=== PATIENT | female | born 1985 | race Two or more races ===

== ENCOUNTER 2017-08-11 13:54 | Emergency (ER) | payer OTHER ==
[~2017-08-11] VITALS: Ht 157.5 cm; Wt 96.6 kg
[~2017-08-11 13:54] MED LIST: CEFTIN500 MG PO; DURICEF PO; KETO10TA2 PO; LEVAQUIN750 MG PO; MOTRIN800 MG PO; PEPCID40 MG PO; PHENERGAN25 MG PO; PYRIDIUM200 MG PO; SEPTRA DS TABLE1 TAB PO
== END 2017-08-11 20:42 | disposition home or self-care (01) ==
LOC: ER 13:54
DX: S30.0XXA Contusion of lower back and pelvis, initial encounter (principal); V43.52XA Car driver injured in collision with other type car in traffic accident, initial encounter; Y93.89 Activity, other specified; Y92.488 Other paved roadways as the place of occurrence of the external cause; Y99.8 Other external cause status

== ENCOUNTER 2018-02-06 15:44 | Emergency (ER) | payer OTHER ==
[~2018-02-06] VITALS: Ht 157.5 cm; Wt 97.5 kg
== END 2018-02-06 18:17 | disposition home or self-care (01) ==
LOC: ER 15:44
DX: J06.9 Acute upper respiratory infection, unspecified (principal)

== ENCOUNTER 2018-02-17 21:05 | Emergency (ER) | payer OTHER ==
[~2018-02-17] VITALS: Ht 157.5 cm; Wt 97.5 kg
== END 2018-02-17 22:25 | disposition home or self-care (01) ==
LOC: ER 21:05
DX: T78.49XA Other allergy, initial encounter (principal); L29.8 Other pruritus

== ENCOUNTER 2018-03-02 20:19 | Emergency (ER) | payer OTHER ==
[~2018-03-02] VITALS: Ht 157.5 cm; Wt 100.7 kg
== END 2018-03-02 22:43 | disposition home or self-care (01) ==
LOC: ER 20:19
DX: B34.9 Viral infection, unspecified (principal); J11.1 Influenza due to unidentified influenza virus with other respiratory manifestations

== ENCOUNTER 2019-09-18 18:24 | Emergency (ER) | payer OTHER ==
[~2019-09-18] VITALS: Ht 160 cm; Wt 99.8 kg
== END 2019-09-18 21:51 | disposition home or self-care (01) ==
LOC: ER 18:24
DX: N93.8 Other specified abnormal uterine and vaginal bleeding (principal)

== ENCOUNTER 2019-10-08 12:47 | Emergency (ER) | payer OTHER ==
[~2019-10-08] VITALS: Ht 157.5 cm; Wt 99.8 kg
== END 2019-10-08 17:15 | disposition home or self-care (01) ==
LOC: ER 12:47
DX: N39.0 Urinary tract infection, site not specified (principal); B96.29 Other Escherichia coli [E. coli] as the cause of diseases classified elsewhere

== ENCOUNTER 2021-01-28 13:30 | Emergency (ER) | payer OTHER ==
[~2021-01-28] VITALS: Ht 157.5 cm; Wt 97.5 kg
== END 2021-01-28 16:20 | disposition home or self-care (01) ==
LOC: ER 13:30
DX: N39.0 Urinary tract infection, site not specified (principal); R10.2 Pelvic and perineal pain

== ENCOUNTER 2022-02-17 19:25 | Emergency (ER) | payer OTHER ==
[~2022-02-17] VITALS: Ht 157.5 cm; Wt 99.8 kg
[2022-02-18] MEDS ORDERED: TRISPEC PSE LI118 ML PO (01:32)
[2022-02-18] MEDS ORDERED: OSEL75CA PO (01:32)
== END 2022-02-18 04:33 ==
LOC: ER 19:25
DX: J10.1 Influenza due to other identified influenza virus with other respiratory manifestations (principal); J06.9 Acute upper respiratory infection, unspecified; Z20.828 Contact with and (suspected) exposure to other viral communicable diseases

== ENCOUNTER 2022-10-12 23:09 | Emergency (ER) | payer OTHER ==
[~2022-10-12] VITALS: Ht 157.5 cm; Wt 99.8 kg
[~2022-10-12 23:09] MED LIST changes: +OSEL75CA PO; +TRISPEC PSE LI118 ML PO
== END 2022-10-13 03:20 | disposition home or self-care (01) ==
LOC: ER 23:09
DX: K29.60 Other gastritis without bleeding (principal); R10.9 Unspecified abdominal pain; K04.7 Periapical abscess without sinus; Z88.0 Allergy status to penicillin; Z88.5 Allergy status to narcotic agent

== ENCOUNTER 2022-12-09 21:59 | Emergency (ER) | payer OTHER ==
[~2022-12-09] VITALS: Ht 157.5 cm; Wt 102.1 kg
== END 2022-12-09 23:14 | disposition home or self-care (01) ==
LOC: ER 21:59
DX: R21 Rash and other nonspecific skin eruption (principal); T63.421A Toxic effect of venom of ants, accidental (unintentional), initial encounter; Z88.0 Allergy status to penicillin; Z88.6 Allergy status to analgesic agent

== ENCOUNTER 2022-12-25 23:16 | Emergency (ER) | payer OTHER ==
[~2022-12-25] VITALS: Ht 157.5 cm; Wt 99.8 kg
== END 2022-12-26 01:10 | disposition home or self-care (01) ==
LOC: ER 23:16
DX: J06.9 Acute upper respiratory infection, unspecified (principal)

== ENCOUNTER 2023-03-16 16:09 | Emergency (ER) | payer OTHER ==
[~2023-03-16] VITALS: Ht 167.6 cm; Wt 99.8 kg
[2023-03-16 17:11] LABS: HEMATOCRIT 39.7 % (36.0-45.00); MEAN CELL VOLUME 84.7 fL (80.00-100.00); MEAN CORPUSCULAR HEMOGLOBIN 27.8 pg (27.00-32.0); MEAN CORPUSCULAR HGB CONC 32.8 g/dl (32.0-36.0); PLATELET COUNT 245 K/uL (150-450); RED BLOOD COUNT 4.69 M/uL (4.00-6.00); RED CELL DISTRIBUTION WIDTH 14.3 % (11.5-14.5)
[2023-03-16 17:41] LABS: CALCIUM 8.8 mg/dL (8.5-10.1); CREATININE SERUM 0.61 mg/dL (0.55-1.02); GFR 110.36; POTASSIUM 4.34 mEq/L (3.5-5.1)
[2023-03-16 21:55] LABS: URINE APPEARANCE Clear; URINE BILIRRUBIN Negative (NEGATIVE); URINE BLOOD Negative; URINE COLOR Yellow; URINE GLUCOSE Negative (NEGATIVE); URINE LEUKOCYTE Negative; URINE NITRATE Negative; URINE PROTEIN Negative (NEGATIVE); URINE UROBILINOGEN 0.2 E.U./dl
[2023-03-16 21:56] LABS: URINE BACTERIA 697.9 uL (0.0-1933); URINE EPITHELIAL CELLS 9.4 uL (0.0-38.8); URINE RBC 4.7 uL (0.0-20.8); URINE WBC 4.4 uL (0.0-23.2)
[2023-03-17] MEDS ORDERED: ONDANSETRON ODT4 MG PO (04:47)
== END 2023-03-17 05:08 | disposition home or self-care (01) ==
LOC: ER 16:09
PROVIDERS: Emergency Medicine
DX: K52.89 Other specified noninfective gastroenteritis and colitis (principal)

== ENCOUNTER 2023-05-10 20:21 | Emergency (ER) | payer OTHER ==
[~2023-05-10] VITALS: Ht 157.5 cm; Wt 100.7 kg
[~2023-05-10 20:21] MED LIST changes: +ONDANSETRON ODT4 MG PO
== END 2023-05-10 21:59 | disposition home or self-care (01) ==
LOC: ER 20:21
DX: M54.32 Sciatica, left side (principal); Z88.8 Allergy status to other drugs, medicaments and biological substances

== ENCOUNTER 2023-06-10 08:33 | Emergency (ER) | payer OTHER ==
[~2023-06-10] VITALS: Ht 157.5 cm; Wt 99.8 kg
[2023-06-10] MEDS ORDERED: 0.9 % SODIUM CHLORIDE 1,000 ML IV STA (08:53)
[2023-06-10] MEDS ORDERED: ONDANSETRON HCL 2 MG/ML VIAL IV STA (08:54)
[2023-06-10] MEDS ORDERED: FAMOTIDINE/PF 20 MG in 0.9 % SODIUM CHLORIDE 8 ML IV PUSH STA (08:54)
[2023-06-10 10:03] LABS: HEMATOCRIT 39.4 % (36.0-45.00); MEAN CELL VOLUME 85.2 fL (80.00-100.00); MEAN CORPUSCULAR HEMOGLOBIN 28.2 pg (27.00-32.0); MEAN CORPUSCULAR HGB CONC 33.1 g/dl (32.0-36.0); PLATELET COUNT 236 K/uL (150-450); RED BLOOD COUNT 4.62 M/uL (4.00-6.00); RED CELL DISTRIBUTION WIDTH 15.2 % (11.5-14.5)
[2023-06-10 10:26] LABS: CALCIUM 9.1 mg/dL (8.5-10.1); CREATININE SERUM 0.64 mg/dL (0.55-1.02); GFR 104.41; POTASSIUM 4.24 mEq/L (3.5-5.1)
== END 2023-06-10 13:57 | disposition home or self-care (01) ==
LOC: ER 08:33
PROVIDERS: Emergency Medicine
DX: K29.50 Unspecified chronic gastritis without bleeding (principal); R10.9 Unspecified abdominal pain; R11.10 Vomiting, unspecified; Z88.0 Allergy status to penicillin

== ENCOUNTER 2023-07-26 23:44 | Emergency (ER) | payer OTHER ==
[~2023-07-26] VITALS: Ht 157.5 cm; Wt 99.8 kg
[2023-07-27] MEDS ORDERED: CIPROFLOXACIN IN 5 % DEXTROSE 400 MG/200 ML PIGGYBAG IV STA (01:55)
[2023-07-27] MEDS ORDERED: KETOROLAC TROMETHAMINE 30 MG VIAL IV STA (01:55)
[2023-07-27 02:12] LABS: HEMATOCRIT 39.5 % (36.0-45.00); HEMOGLOBIN 13.1 g/dL (12.0-15.00); MEAN CELL VOLUME 85.9 fL (80.00-100.00); MEAN CORPUSCULAR HEMOGLOBIN 28.5 pg (27.00-32.0); MEAN CORPUSCULAR HGB CONC 33.2 g/dl (32.0-36.0); PLATELET COUNT 228 K/uL (150-450)
[2023-07-27 02:24] LABS: URINE APPEARANCE Cloudy; URINE BILIRRUBIN Negative (NEGATIVE); URINE BLOOD Negative; URINE COLOR Yellow; URINE GLUCOSE Negative (NEGATIVE); URINE LEUKOCYTE Moderate; URINE NITRATE Negative; URINE PROTEIN Negative (NEGATIVE)
[2023-07-27 02:27] LABS: URINE BACTERIA 2677.4 uL (0.0-1933); URINE EPITHELIAL CELLS 77.4 uL (0.0-38.8); URINE RBC 6.7 uL (0.0-20.8); URINE WBC 505.5 uL (0.0-23.2)
== END 2023-07-27 03:54 | disposition home or self-care (01) ==
LOC: ER 23:44
DX: N39.0 Urinary tract infection, site not specified (principal); Z88.0 Allergy status to penicillin

== ENCOUNTER 2023-07-31 18:17 | Emergency (ER) | payer OTHER ==
[~2023-07-31] VITALS: Ht 157.5 cm; Wt 99.8 kg
[2023-07-31] MEDS ORDERED: ACETAMINOPHEN 500 MG GEL..CAP PO ONE (20:30)
[2023-07-31] MEDS ORDERED: KETOROLAC TROMETHAMINE 30 MG VIAL IM ONE (20:45)
[2023-07-31] MEDS ORDERED: TRAMADOL HCL 50 MG TABLET PO ONE (20:45)
== END 2023-07-31 22:36 | disposition home or self-care (01) ==
LOC: ER 18:18
DX: S90.01XA Contusion of right ankle, initial encounter (principal); S80.01XA Contusion of right knee, initial encounter; W19.XXXA Unspecified fall, initial encounter; Y93.89 Activity, other specified; Y92.018 Other place in single-family (private) house as the place of occurrence of the external cause; Y99.9 Unspecified external cause status; Z88.8 Allergy status to other drugs, medicaments and biological substances; Z87.09 Personal history of other diseases of the respiratory system

== ENCOUNTER 2023-11-21 09:38 | Emergency (ER) | payer OTHER ==
[~2023-11-21] VITALS: Ht 157.5 cm; Wt 99.8 kg
[2023-11-21 10:33] LABS: HEMATOCRIT 35.9 % (36.0-45.00); HEMOGLOBIN 11.9 g/dL (12.0-15.00); MEAN CELL VOLUME 84.5 fL (80.00-100.00); MEAN CORPUSCULAR HEMOGLOBIN 27.9 pg (27.00-32.0); MEAN CORPUSCULAR HGB CONC 33.1 g/dl (32.0-36.0); PLATELET COUNT 240 K/uL (150-450); RED BLOOD COUNT 4.25 M/uL (4.00-6.00); RED CELL DISTRIBUTION WIDTH 15.4 % (11.5-14.5)
[2023-11-21 10:56] LABS: PH,URINE 5.5 (5.0-8.0); URINE APPEARANCE Clear; URINE BILIRRUBIN Negative (NEGATIVE); URINE BLOOD Negative; URINE COLOR Yellow; URINE GLUCOSE Negative (NEGATIVE); URINE LEUKOCYTE Moderate; URINE NITRATE Negative; URINE PROTEIN Negative (NEGATIVE)
[2023-11-21 10:58] LABS: CALCIUM 9.2 mg/dL (8.5-10.1); CREATININE SERUM 0.56 mg/dL (0.55-1.02); GFR 121.81; POTASSIUM 3.95 mEq/L (3.5-5.1)
[2023-11-21 10:59] LABS: URINE BACTERIA 908.3 uL (0.0-1933); URINE EPITHELIAL CELLS 10.2 uL (0.0-38.8); URINE RBC 4.7 uL (0.0-20.8); URINE WBC 488.7 uL (0.0-23.2)
[2023-11-21] MEDS ORDERED: CEFTRIAXONE SODIUM 1,000 MG VIAL IM STA (11:30)
[2023-11-21] MEDS ORDERED: CEFTRIAXONE SODIUM 1,000 MG VIAL ONE (11:38)
[2023-11-21] MEDS ORDERED: LIDOCAINE HCL 1% 10ML VIAL ONE (11:39)
== END 2023-11-21 11:48 | disposition home or self-care (01) ==
LOC: ER 09:40
PROVIDERS: General Practice
DX: N39.0 Urinary tract infection, site not specified (principal); Z88.8 Allergy status to other drugs, medicaments and biological substances

== ENCOUNTER 2023-11-25 03:30 | Emergency (ER) | payer OTHER ==
[~2023-11-25] VITALS: Ht 157.5 cm; Wt 99.8 kg
[2023-11-25] MEDS ORDERED: HYOSCYAMINE SULFATE 0.125 MG TAB.SUBL SL STA (04:15)
[2023-11-25] MEDS ORDERED: FAMOTIDINE/PF 20 MG/2 ML VIAL IV PUSH STA (04:15)
[2023-11-25] MEDS ORDERED: PROMETHAZINE HCL 50 MG/ML AMPUL IM STA (04:15)
[2023-11-25] MEDS ORDERED: HYOSCYAMINE SULFATE 0.125 MG TAB.SUBL ONE (04:19)
[2023-11-25] MEDS ORDERED: PROMETHAZINE HCL 50 MG/ML AMPUL IM ONE (04:19)
[2023-11-25] MEDS ORDERED: FAMOTIDINE/PF 20 MG/2 ML VIAL ONE (04:19)
[2023-11-25 04:56] LABS: AMYLASE 52 U/L (25-115); LIPASE 33 U/L (13-75)
[2023-11-25] MEDS ORDERED: MEPERIDINE HCL/PF 50 MG/ML VIAL IM STA (05:59)
[2023-11-25] MEDS ORDERED: PROTONIX40 MG PO (07:53)
[2023-11-25] MEDS ORDERED: ZOFRAN8 MG PO (07:53)
== END 2023-11-25 08:54 ==
LOC: ER 03:31
PROVIDERS: General Practice
DX: R10.13 Epigastric pain (principal)

== ENCOUNTER 2024-06-03 03:52 | Emergency (ER) | payer OTHER ==
[~2024-06-03] VITALS: Ht 162.6 cm; Wt 90.7 kg
[~2024-06-03 03:52] MED LIST changes: +PROTONIX40 MG PO; +ZOFRAN8 MG PO
[2024-06-03] MEDS ORDERED: 0.9 % SODIUM CHLORIDE 1,000 ML IV STA (04:52)
[2024-06-03] MEDS ORDERED: FAMOtidine 10 MG/ML (4ML VIAL) IV PUSH STA (04:53)
[2024-06-03] MEDS ORDERED: PROMETHAZINE HCL 50 MG/ML AMPUL IM STA (04:54)
[2024-06-03] MEDS ORDERED: KETOROLAC TROMETHAMINE 30 MG VIAL IV STA (04:54)
[2024-06-03] MEDS ORDERED: KETOROLAC TROMETHAMINE 30 MG VIAL ONE (04:58)
[2024-06-03] MEDS ORDERED: PROMETHAZINE HCL 50 MG/ML AMPUL IM ONE (04:58)
[2024-06-03] MEDS ORDERED: HYOSCYAMINE SULFATE 0.125 MG TAB.SUBL ONE (04:59)
[2024-06-03] MEDS ORDERED: FAMOTIDINE/PF 20 MG/2 ML VIAL ONE (04:59)
[2024-06-03] MEDS ORDERED: HYOSCYAMINE SULFATE 0.125 MG TAB.SUBL SL ONE (05:00)
[2024-06-03 05:24] LABS: HEMATOCRIT 37.4 % (36.0-45.00); HEMOGLOBIN 12.1 g/dL (12.0-15.00); MEAN CELL VOLUME 88.2 fL (80.00-100.00); MEAN CORPUSCULAR HEMOGLOBIN 28.5 pg (27.00-32.0); MEAN CORPUSCULAR HGB CONC 32.3 g/dl (32.0-36.0); PLATELET COUNT 224 K/uL (150-450); RED BLOOD COUNT 4.24 M/uL (4.00-6.00); RED CELL DISTRIBUTION WIDTH 14.5 % (11.5-14.5)
[2024-06-03 05:44] LABS: CALCIUM 8.5 mg/dL (8.5-10.1); CREATININE SERUM 0.73 mg/dL (0.55-1.02); GFR 89.22; POTASSIUM 3.84 mEq/L (3.5-5.1)
== END 2024-06-03 06:51 | disposition home or self-care (01) ==
LOC: ER 03:55
DX: K29.70 Gastritis, unspecified, without bleeding (principal); K30 Functional dyspepsia; R14.3 Flatulence; Z88.8 Allergy status to other drugs, medicaments and biological substances
CPT/HCPCS: 36415; 96365; 96366; 96372; 99282; J1885; J2250; J3490; J7030

== ENCOUNTER 2024-09-28 07:49 | Emergency (ER) | payer OTHER ==
[~2024-09-28] VITALS: Ht 157.5 cm; Wt 90.7 kg
[2024-09-28 08:10] VITALS: BP 104/71; O2SAT 99
[2024-09-28] MEDS ORDERED: 0.9 % SODIUM CHLORIDE 1,000 ML IV STA (08:42)
[2024-09-28] MEDS ORDERED: KETOROLAC TROMETHAMINE 30 MG VIAL IV ONE ×2 (08:45→15:15)
[2024-09-28] MEDS ORDERED: KETOROLAC TROMETHAMINE 30 MG VIAL ONE ×2 (09:01→15:05)
[2024-09-28] MEDS ORDERED: BARIUM SULFATE 450 ML ORAL.SUSP PO ONE (09:02)
[2024-09-28 09:44] LABS: BASO % 0.2 % (0.1-1.2); EOS # 0.04 (0.04-0.54); EOS % 0.4 % (0.7-7.0); HEMATOCRIT 39.1 % (34.1-44.9); HEMOGLOBIN 12.6 g/dL (11.2-15.7); LYMPH # 0.88 (1.18-3.74); MEAN CORPUSCULAR HEMOGLOBIN 27.9 pg (25.6-32.2); MONO # 0.67 (0.24-0.82); MONO % 6.1 % (4.7-12.5); NEUT # 9.31 (1.56-6.13); PLATELET COUNT 219 K/uL (163-369); RED BLOOD COUNT 4.52 M/uL (3.93-5.22); RED CELL DISTRIBUTION WIDTH 13.7 % (11.6-14.4)
[2024-09-28 10:20] LABS: CALCIUM 8.7 mg/dL (8.5-10.1); CREATININE SERUM 0.77 mg/dL (0.55-1.02); GFR 83.89; POTASSIUM 4.03 mEq/L (3.5-5.1)
[2024-09-28 10:31] LABS: URINE APPEARANCE Clear; URINE BILIRRUBIN Negative (NEGATIVE); URINE BLOOD Negative; URINE COLOR Yellow; URINE GLUCOSE Negative (NEGATIVE); URINE KETONE Negative (NEGATIVE); URINE LEUKOCYTE Negative; URINE NITRATE Negative; URINE PROTEIN Negative (NEGATIVE)
[2024-09-28 10:35] LABS: URINE BACTERIA 61.1 uL (0.0-1933); URINE EPITHELIAL CELLS 6.9 uL (0.0-38.8); URINE RBC 5.4 uL (0.0-20.8)
[2024-09-28 10:44] LABS: URINE CAST 0.14 uL (0.0-1.40)
== END 2024-09-28 15:20 | disposition home or self-care (01) ==
LOC: ER 07:53
PROVIDERS: Emergency Medicine
DX: K80.20 Calculus of gallbladder without cholecystitis without obstruction (principal); Z88.8 Allergy status to other drugs, medicaments and biological substances